=== PATIENT | male | born 1940 | race Caucasian/White ===

== ENCOUNTER 2020-04-10 11:19 | Emergency (ER) | payer OTHER ==
[2020-04-10] MEDS ORDERED: SODIUM CHLORIDE 0.9% 1,000 ML IV STA (11:58)
--- NOTE | 2020-04-10 12:00 | ED Physician Documentation ---
History of Present Illness - Stated complaint Stated Complaint: WEAKNESS - Chief complaint Chief Complaint: General - History obtained from History obtained from: Patient - History of Present Illness Timing: How many weeks ago (8) - Additonal information Additional information: 79-year-old male with history of type 2 diabetes and Jillian-Matos virus has recently been treated for a sinus infection several months ago when his symptoms of the sinus infection have resolved. He never felt that he fully improved his health following this infection. He indicates that he is felt weak, shaky and fatigued. He recently traveled by automobile from [place] with his daughter. He planned on sharing the driving but found he was unable to do his part. Review of Systems Constitutional: reports: Myalgias, Fatigue. denies: Fever, Chills, Sweats Eyes: denies: Decreased vision Ears: denies: Ear pain Nose: denies: Rhinorrhea / runny nose, Congestion Throat: denies: Sore throat Cardiac: denies: Chest pain / pressure, Palpitations Respiratory: denies: Dyspnea, Cough GI: denies: Abdominal Pain, Nausea, Vomiting : denies: Dysuria Skin: denies: Rash Musculoskeletal: denies: Neck pain, Back pain, Extremity pain Neurologic: reports: Generalized weakness. denies: Focal weakness, Numbness, Difficulty speaking PD PAST MEDICAL HISTORY - Past Medical History Past Medical History: Yes Cardiovascular: Hypertension, High cholesterol Respiratory: Emphysema Endocrine/Autoimmune: Type 2 diabetes GI: Hiatal hernia : None HEENT: Chronic hearing loss Psych: None Musculoskeletal: None Derm: None Other Past Medical History: Per patient anuresym. - Past Surgical History Past Surgical History: Yes General: Appendectomy - Present Medications Home Medications: Ambulatory Orders Medication Instructions Recorded Confirmed Cefdinir 300 mg PO BID #20 capsule 04/10/20 Lisinopril [Prinivil] 10 mg PO DAILY #30 tablet 04/10/20 - Allergies Allergies/Adverse Reactions: Allergies Allergy/AdvReac Type Severity Reaction Status Date / Time No Known Drug Allergies Allergy Verified 04/10/20 12:09 - Social History Does the pt smoke?: Yes Smoking Status: Current every day smoker PD ED PE NORMAL - Vitals Vital signs reviewed: Yes (hypertensive excessive ) - General General: Alert and oriented X 3, No acute distress, Well developed/nourished, Other (79 y/o masked male who is hard of hearing. He reads lips well and history is improved when I take my mask off. The TM's are both inflamed the left more than the right. 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, No motor deficit, No sensory deficit, Normal speech Eye Opening: Spontaneous Motor: Obeys Commands Verbal: Oriented GCS Score: 15 - Psych Psych: Normal mood, Normal affect Results - Vitals Vitals: Vital Signs - 24 hr 04/10/20 11:22 Temperature 36.9 C Heart Rate 95 Respiratory 18 Rate Blood Pressure 186/116 H O2 Saturation 99 Oxygen O2 Source Room air - EKG (time done) 1136 Rate: Rate (enter#) (86) Rhythm: NSR [place]: LAD Intervals: Prolonged [place] Compare to prior EKG: Old EKG unavailable Computer interpretation: Agree with computer - Labs Labs: Laboratory Tests 04/10/20 04/10/20 04/10/20 12:05 12:05 12:05 WBC 5.7 RBC 4.73 Hgb 14.8 Hct 42.0 MCV 88.8 MCH 31.3 H MCHC 35.2 RDW 12.8 Plt Count 134 MPV 10.0 Neut # (Auto) 3.5 Lymph # (Auto) 1.5 [place] # (Auto) 0.5 Eos # (Auto) 0.2 Baso # (Auto) 0.1 Absolute Nucleated RBC 0.00 Nucleated RBC % 0.0 Sodium 135 Potassium 3.6 Chloride 97 L Carbon Dioxide 26 Anion Gap 12.0 BUN 11 Creatinine 0.7 Estimated GFR (MDRD) 109 Glucose 107 H Calcium 9.5 Total Bilirubin 1.0 AST 17 ALT 22 Alkaline Phosphatase 46 Total Protein 7.3 Albumin 4.5 Globulin 2.8 Albumin/Globulin Ratio 1.6 Lipase 28 Urine Color YELLOW Urine Clarity CLEAR Urine pH 6.5 Ur Specific [place] 1.010 Urine Protein NEGATIVE Urine Glucose (UA) 250 H Urine Ketones NEGATIVE Urine Occult Blood NEGATIVE Urine Nitrite NEGATIVE Urine Bilirubin NEGATIVE Urine Urobilinogen 0.2 (NORMAL) Ur Leukocyte Esterase NEGATIVE Ur Microscopic Review NOT INDICATED Urine Culture Comments NOT INDICATED Procedures - IVC sono (time) 1200 Bedside IVC sono: IVC measures (cm) (0.98), Dehydration (est 1-2 liter deficit) PD MEDICAL DECISION MAKING - ED course Complexity details: reviewed results, re-evaluated patient, considered differential, d/w patient ED course: Previously well 79-year-old male with a chief complaint of fatigue shakiness and lightheadedness is found to be dehydrated on interrogation of the inferior vena cava. I do not believe this is the entire explanation for the patient's symptoms. And and further investigation I was able to examine the TMs bilaterally and they both have their evidence of inflammation. I suspect the patient has persistent unresolved infection and we will treat this as well. He is administered saline with improvement and dexamethasone. We will place him on some Ceftin ear outpatient. The patient is concerned about his blood pressure. He has run high blood pressures for months now and he has a AAA and he is concerned about causing more of a problem. He has been counseled to take antihypertensives previously and had refused. Today we discussed the use of antihypertensive and we will place him on some lisinopril. He gets his care at the OR and he will follow-up with them. Departure - Departure Disposition: 01 Home, Self Care Clinical Impression: Dehydration Otitis media Qualifiers: Otitis media type: suppurative Chronicity: acute Laterality: bilateral Recurrence: non-recurrent Spontaneous tympanic membrane rupture: without spontaneous rupture Qualified Code(s): H66.003 - Acute suppurative otitis media without spontaneous rupture of ear drum, bilateral Hypertension Qualifiers: Hypertension type: unspecified Qualified Code(s): I10 - Essential (primary) hypertension Condition: Stable Instructions: ED Dehydration, ED Otitis Media Acute Adult, ED Hypertension New Begin Tx Follow-Up: Your, doctor [Other] Prescriptions: Cefdinir 300 mg PO BID #20 capsule Lisinopril [Prinivil] 10 mg PO DAILY #30 tablet
[2020-04-10 12:27] LABS: BASOPHILS # (AUTO) 0.1 10^3/uL (0.0-0.1); BASOPHILS % (AUTO) 0.9 %; BILIRUBIN,URINE NEGATIVE (NEGATIVE); EOSINOPHILS # (AUTO) 0.2 10^3/uL (0.0-0.7); GLUCOSE, URINE (UA) 250 mg/dL (NEGATIVE); HGB - HEMOGLOBIN 14.8 g/dL (14.0-18.0); KETONES,URINE (UA) NEGATIVE (NEGATIVE); LEUKOCYTE ESTERASE, URINE NEGATIVE (NEGATIVE); LYMPHOCYTES # (AUTO) 1.5 10^3/uL (1.5-3.5); LYMPHOCYTES % (AUTO) 25.5 %; MEAN CORPUSCULAR HEMOGLOBIN 31.3 pg (27.0-31.0); MEAN CORPUSCULAR HGB CONC 35.2 g/dL (32.0-36.0); MEAN CORPUSCULAR VOLUME 88.8 fL (80.0-94.0); MONOCYTES # (AUTO) 0.5 10^3/uL (0.0-1.0); MONOCYTES % (AUTO) 9.1 %; NEUTROPHILS # (AUTO) 3.5 10^3/uL (1.5-6.6); NEUTROPHILS % (AUTO) 61.3 %; NITRITE,URINE NEGATIVE (NEGATIVE); OCCULT BLOOD,URINE NEGATIVE (NEGATIVE); PH,URINE 6.5 PH (5.0-7.5); PLT - PLATELET COUNT 134 10^3/uL (130-450); PROTEIN,URINE NEGATIVE (NEGATIVE); RED BLOOD COUNT 4.73 10^6/uL (4.70-6.10); RED CELL DISTRIBUTION WIDTH 12.8 % (12.0-15.0); UROBILINOGEN,URINE 0.2 (NORMAL) E.U./dL (NORMAL); WHITE BLOOD COUNT 5.7 x10^3/uL (4.8-10.8)
[2020-04-10 12:29] LABS: ALBUMIN 4.5 g/dL (3.2-5.5); ALBUMIN/GLOBULIN RATIO 1.6 (1.0-2.2); CALCIUM 9.5 mg/dL (8.5-10.3); CREATININE 0.7 mg/dL (0.6-1.2); TOTAL PROTEIN 7.3 g/dL (6.7-8.2)
[2020-04-10 12:31] LABS: CLARITY,URINE CLEAR (CLEAR)
[2020-04-10] MEDS ORDERED: DEXAMETHASONE 10 MG/ML VIAL IVP STA (13:13)
[2020-04-10 13:33] VITALS: BP 190/97
== END 2020-04-10 13:51 | disposition home or self-care (01) ==
LOC: ED 11:19
DX: E86.0 Dehydration (principal); H66.003 Acute suppurative otitis media without spontaneous rupture of ear drum, bilateral; I10 Essential (primary) hypertension; I71.4 Abdominal aortic aneurysm, without rupture; I49.3 Ventricular premature depolarization; I44.0 Atrioventricular block, first degree; E11.9 Type 2 diabetes mellitus without complications; J43.9 Emphysema, unspecified; F17.200 Nicotine dependence, unspecified, uncomplicated; H91.90 Unspecified hearing loss, unspecified ear
CPT/HCPCS: 36415; 80053; 81001; 81003; 83690; 85025; 87086; 93005; 96361; 96374; 99284